=== PATIENT | female | born 1965 | race Caucasian/White ===

== ENCOUNTER 2016-08-17 02:26 | Emergency (ER) | payer SELFPAY ==
--- NOTE | ~2016-08-17 | EKG ---
PATIENT: KYAW LOPEZ UNIT #: [id number] Ventricular Rate: 101 BPM Atrial Rate: 101 BPM P-R Interval: 142 ms QRS Duration: 86 ms Q-T Interval: 372 ms QTC Calculation(Bezet): 482 ms P Celeste: 79 degrees Calculated R Celeste: 65 degrees Calculated T Celeste: 71 degrees Diagnosis Line: Sinus tachycardia Diagnosis Line: Otherwise normal ECG Diagnosis Line: When compared with ECG of 15-OCT-2011 18:39, Diagnosis Line: No significant change was found Diagnosis Line: Confirmed by SÁNCHEZ BAPTISTE MD ([id number]) on Diagnosis Line: 08/18/2016 12:04:19 PM Diagnosis Line: Also confirmed by SÁNCHEZ BAPTISTE MD ([id number]), Diagnosis Line: editorial writer FROYLAN MARROQUIN ([id number]) on 08/20/2016 Diagnosis Line: 8:59:50 AM INTERPRETING MD: EMILE MAHAN
[2016-08-17 01:50] LABS: BASOPHIL# 0.1 X10e3 (0-0.3); BASOPHIL% 0.9 % (0-2.5); EOSINOPHIL# 0.3 X10e3 (0-0.7); EOSINOPHIL% 5.7 % (0.0-7.0); HEMATOCRIT 45.7 % (35.0-45.0); HEMOGLOBIN 15.4 gm/dL (12.0-16.0); LYMPHOCYTE# 2.6 X10e3 (1.0-3.5); LYMPHOCYTE% 43.2 % (17.0-45.0); MEAN CELL VOLUME 87.8 FL (83-96); MEAN CORPUSCULAR HEMOGLOBIN 29.6 PG (28-34); MEAN CORPUSCULAR HGB CONC 33.7 g/dL (30-36); MEAN PLATELET VOLUME 7.2 FL (6.5-11.5); MONOCYTE# 0.6 X10e3 (0-1.0); MONOCYTE% 10.6 % (3.0-12.0); NEUTROPHIL# 2.4 X10e3 (1.5-7.1); NEUTROPHIL% 39.6 % (40-75); PLATELET COUNT 167 X10e3 (140-420); RED CELL DISTRIBUTION WIDTH 16.8 % (11.0-15.5); WHITE BLOOD COUNT 6.1 X10e3 (4.0-10.5)
[2016-08-17 01:52] LABS: DIFF IND NO
[2016-08-17 02:00] LABS: PROTHROMBIN TIME (PATIENT) 11.1 SECONDS (9.5-12.4)
[2016-08-17 02:08] LABS: PARTIAL THROMBOPLASTIN TIME 27.7 SECONDS (25.6-38.1)
[2016-08-17 02:09] LABS: ALBUMIN SERUM 4.7 g/dL (3.5-5.0); BILIRUBIN, DIRECT 0.1 mg/dL (0.0-0.2); BILIRUBIN,INDIRECT 0.3 mg/dL (0.0-0.9); BILIRUBIN,TOTAL 0.4 mg/dL (0.2-2.0); CREATININE SERUM 0.6 mg/dL (0.6-1.4); GLOM FILT RATE Estimated 106.3 mL/min (>60); PROTEIN TOTAL SERUM 8.5 g/dL (6.0-8.3)
[2016-08-17 02:13] LABS: POC - CKMB 2.4 ng/mL (0.0-7.9); POC - TROPONIN <0.05 ng/mL (<=0.05)
[~2016-08-17 02:26] MED LIST: AURALGAN AD; BACLOFEN10 MG PO; BIRTH CONTROL PILL PO; FEMARA2.5 MG; IRON1 TAB PO; NAPROXEN PO; NO MEDICATIONS; PAXIL PO; SEROQUEL100 MG
[2016-08-17 03:38] LABS: POC - CKMB 1.3 ng/mL (0.0-7.9)
[2016-08-17 03:39] LABS: POC - TROPONIN <0.05 ng/mL (<=0.05)
== END 2016-08-17 04:10 | disposition home or self-care (01) ==
LOC: SED 02:26
PROVIDERS: Emergency Medicine
DX: R07.89 Other chest pain (principal); F17.200 Nicotine dependence, unspecified, uncomplicated; Z88.1 Allergy status to other antibiotic agents
CPT/HCPCS: 36415; 80048; 80076; 82553; 84484; 85025; 85610; 85730; 93005; 99284